=== PATIENT | female | born 1970 | race Caucasian/White ===

== ENCOUNTER → 2017-01-07 | Outpatient (CLI) | payer OTHER ==
[~2017-01-07] MED LIST: CEPH500C PO; CETI10TA84 PO; DULO60CA44 PO; MONT1TAB3 PO; OXYC1TAB3 PO; SULF800T23 PO; TRIA1SPR2 NAE
[2017-01-10 01:04] LABS: CHLAMYDIA TRACH RNA*** NOT DETECTED (NOT DETECTED); GC (NEIS GONORRHOEAE)RNA** NOT DETECTED (NOT DETECTED)
--- NOTE | 2017-02-22 10:28 | CODING QUERY NO DIAGNOSIS ---
TREATMENT RENDERED WITHOUT A DIAGNOSIS To promote full compliance with coding requirements relating to patient care, physician participation is requested in all cases of robotics specialist uncertainty. Please assist us with providing a diagnosis/symptom for the test(s) below: A diagnosis/symptom was not documented on your Order. A valid diagnosis/symptom is required to bill all insurances. Please remember that we are unable to code a diagnosis of rule out, probable, possible, questionable, or suspected. Tests that require a diagnosis: * MICROBIOLOGY- CHLAMYDIA DIAGNOSIS: * GC SCREEN DIAGNOSIS: * DOS: 01/07/17 Provider Signature: Date: Thank you Rad[facility] Information Management Once completed, please kindly fax back to [phone] For questions please call [phone]
== END | disposition home or self-care (01) ==
LOC: C.LABCVIM 10:56 → EDSTATUS 02-15 10:48
PROVIDERS: ATTEND Obstetrics & Gynecology Gynecology
DX: Z11.3 Encounter for screening for infections with a predominantly sexual mode of transmission (principal)

== ENCOUNTER 2017-04-15 17:17 | Emergency (ER) | payer OTHER ==
[~2017-04-15] VITALS: Ht 165.1 cm; Wt 60.0 kg
[~2017-04-15 17:17] MED LIST changes: -CEPH500C PO; -DULO60CA44 PO; -OXYC1TAB3 PO; -SULF800T23 PO
[2017-04-15 17:34] VITALS: TEMP 36.6; Ht 165.1 cm; Wt 60.0 kg
[2017-04-15] MEDS ORDERED: DULO60CA44 PO (17:51)
[2017-04-15] MEDS ORDERED: XYLOCAINE 1%/SOD BICARB 20 ML VIAL INFIL ONE (18:00)
[2017-04-15] MEDS ORDERED: SULF800T23 PO (19:02)
[2017-04-15] MEDS ORDERED: CEPH500C PO (19:02)
--- NOTE | 2017-04-15 19:05 | EMERGENCY ROOM VISIT NOTE ---
ED Visit Note First contact with patient: 17:47 CHIEF COMPLAINT: Infection of the right labia HISTORY OF PRESENT ILLNESS: This 47-year-old female patient presents to the emergency department 4 days after they noticed a hard, red, tender area in the right labia. The patient states proximally 3 months ago, she had a similar episode, however this did go away while she was on Flagyl. She states now, the hard lump has returned, and is significantly more painful and bothersome at this time. It is slowly getting larger, more painful and tender. No fever, chills, or loss of appetite. There has been no drainage from the area. There was no injury to the area preceding the infection. They rate the pain as intense, throbbing and 10/10. Tetanus shot is up to date. They have tried warm compresses and salt water soaks without relief of the discomfort. The patient is not diabetic. The patient has no history of subcutaneous abscesses. REVIEW OF SYSTEMS: A 10 system review of systems was performed with positives and pertinent negatives listed in the history of present illness. All other systems were reviewed and are negative. ALLERGIES: None MEDICATIONS: Cymbalta PMH: All over body pain SOCIAL HISTORY: Lives locally with family. She denies alcohol use. The patient states she does smoke one pack cigarettes per day. The patient also admits to smoking marijuana every night. PHYSICAL EXAM: Vital Signs: Reviewed Nurse's notes, vital signs stable. GENERAL : Is a 47-year-old female, no acute distress, non toxic in appearance, well- developed well-nourished. SKIN: There is an erythematous indurated area on the right side of the labia which measures about 4 cm in diameter. It is fluctuant but there is no pointing or drainage. There is a zone of inflammation around it but no lymphangitis. Capillary refill less than 2 seconds. MUSCULOSKELETAL : There is no limitation of the range of motion of the right lower extremity. EMERGENCY DEPARTMENT COURSE: I examined the patient. Verbal consent was obtained to perform the procedure. After saline and Betadine cleansing and 6 mL of 1% buffered lidocaine anesthesia, the abscess was incised with a number 11 scalpel blade. A large amount of purulent material was released with more expressed by pressure. A swab was obtained for culture. The abscess cavity was further probed with a needle special events driver and the deep pocket expressed. The abscess cavity was then copiously irrigated with sterile saline under pressure. The area was then packed with bacitracin soaked packing. The area was cleaned with sterile saline and dressed with bacitracin and a bulky bandage. The patient tolerated the procedure well. The patient was discharged home in stable condition. DIFFERENTIAL DIAGNOSIS: Bartholin's cyst, abscess, cellulitis, sepsis, and others DIAGNOSIS: Abscess of the Bartholin's cyst DISCHARGE INSTRUCTIONS & TREATMENT: You were seen in the Emergency Department for Incision and Drainage of a Bartholin's cyst abscess. You will NEED to return to the Emergency Department to have the packing removed/changed in 48 hours. This packing is NOT dissolvable and WILL need to be removed by a health care provider. Try to leave the packing in place until you return to the Emergency Department. You have been prescribed OxyIR to be used for pain control. This is a narcotic medication. You cannot drive or consume alcohol while on this medicine. This medicine should only be used for pain that cannot be controlled with over-the- counter pain medicines. This medication and Cymbalta can increase your risk of neurological symptoms associated with serotonin levels. Only use this medication EXTREMELY SPARINGLY and if needed for severe pain. You were prescribed Keflex and Bactrim to be taken as directed. Both of these medications are antibiotics. Stop these medications and contact a medical provider if you were to develop any significant adverse side effects including: wheezing, shortness of breath, passing out, vomiting, or a diffuse rash. Always take antibiotics as directed and COMPLETE the ENTIRE course regardless of the improvement of your symptoms. Proper wound care is essential for adequate wound healing and infection prevention. You can shower and clean the wound with soap and water. Do not scour over the wound. Pat dry with a towel. Do not submerse the wound (i.e. bathe or dish wash) until the sutures have been removed. You can use an antibiotic ointment with a dressing over the wound for the next 3-4 days. After this time you may leave the wound dry and open to the air. If crust develops over the wound you can use a Q-tip to apply a 1:1 peroxide:water solution to clean the wound. Look for signs of infection of the wound including: increased pain, swelling, foul discharge, streaking, or increased temperature. If any of these are noticed you should return to the Emergency Department for further assessment and treatment. As with any laceration you may have received nerve damage to the surrounding tissues. This damage may or may not be permanent. For pain control, you can use the following krge-cit-bhwjvui medicines (if >12 yo): - Regular strength (325mg/tab) Tylenol (acetaminophen) 2 tabs every 4-6 hours as needed. Do not exceed 9 tablets in a 24 hour period. Avoid taking more than 3 grams (3000 mg) of Tylenol per day. This includes any other sources of acetaminophen you may take on a regular basis. - Regular strength (200 mg/tab) Advil (ibuprofen) 1-2 tabs every 4-6 hours as needed. Do not exceed a dose of 3200 mg per day. Return to the emergency department if your symptoms worsen despite treatment course outlined above. Current/Historical Medications Scheduled Cephalexin Monohydrate (Keflex), 500 MG PO QID Duloxetine Hcl (Cymbalta), 60 MG PO DAILY Sulfa/Trimethoprim (Bactrim Ds 800MG/160MG), 1 TAB PO BID Scheduled PRN Oxycodone Ir (Roxicodone Ir), 1 TAB PO Q4-6 PRN for Pain Allergies Coded Allergies: No Known Allergies (Unverified , 04/29/16) Vital Signs Date Time Temp Pulse Resp B/P (MAP) Pulse Ox O2 Delivery O2 Flow Rate FiO2 04/15/17 19:25 73 18 128/69 98 04/15/17 17:34 36.6 95 18 144/71 97 Room Air Departure Information Impression Primary Impression: Abscess of Bartholin's gland Dispostion Home / Self-Care Condition GOOD Prescriptions Oxycodone Ir (Roxicodone Ir) 5 Mg Tab 1 TAB PO Q4-6 Y for Pain, #10 TAB For Initial Treatment Prov: Kely Ahuja PA-C 04/15/17 Sulfa/Trimethoprim (Bactrim Ds 800MG/160MG) Tab 1 TAB PO BID for 7 Days, #14 TAB Prov: Kely Ahuja PA-C 04/15/17 Cephalexin Monohydrate (Keflex) 500 Mg Cap 500 MG PO QID for 7 Days, #28 CAP Prov: Kely Ahuja PA-C 04/15/17 Referrals Janna,Yosvany F.JR,M.D.(JOYCE) (PCP) Patient Instructions ED Bartholins Cyst Alyce Singh [facility] Additional Instructions You were seen in the Emergency Department for Incision and Drainage of a Bartholin's cyst abscess. You will NEED to return to the Emergency Department to have the packing removed/changed in 48 hours. This packing is NOT dissolvable and WILL need to be removed by a health care provider. Try to leave the packing in place until you return to the Emergency Department. You have been prescribed OxyIR to be used for pain control. This is a narcotic medication. You cannot drive or consume alcohol while on this medicine. This medicine should only be used for pain that cannot be controlled with over-the- counter pain medicines. This medication and Cymbalta can increase your risk of neurological symptoms associated with serotonin levels. Only use this medication EXTREMELY SPARINGLY and if needed for severe pain. You were prescribed Keflex and Bactrim to be taken as directed. Both of these medications are antibiotics. Stop these medications and contact a medical provider if you were to develop any significant adverse side effects including: wheezing, shortness of breath, passing out, vomiting, or a diffuse rash. Always take antibiotics as directed and COMPLETE the ENTIRE course regardless of the improvement of your symptoms. Proper wound care is essential for adequate wound healing and infection prevention. You can shower and clean the wound with soap and water. Do not scour over the wound. Pat dry with a towel. Do not submerse the wound (i.e. bathe or dish wash) until the sutures have been removed. You can use an antibiotic ointment with a dressing over the wound for the next 3-4 days. After this time you may leave the wound dry and open to the air. If crust develops over the wound you can use a Q-tip to apply a 1:1 peroxide:water solution to clean the wound. Look for signs of infection of the wound including: increased pain, swelling, foul discharge, streaking, or increased temperature. If any of these are noticed you should return to the Emergency Department for further assessment and treatment. As with any laceration you may have received nerve damage to the surrounding tissues. This damage may or may not be permanent. For pain control, you can use the following ilsq-uqd-tiqvisk medicines (if >12 yo): - Regular strength (325mg/tab) Tylenol (acetaminophen) 2 tabs every 4-6 hours as needed. Do not exceed 9 tablets in a 24 hour period. Avoid taking more than 3 grams (3000 mg) of Tylenol per day. This includes any other sources of acetaminophen you may take on a regular basis. - Regular strength (200 mg/tab) Advil (ibuprofen) 1-2 tabs every 4-6 hours as needed. Do not exceed a dose of 3200 mg per day. Return to the emergency department if your symptoms worsen despite treatment course outlined above.
[2017-04-15] MEDS ORDERED: OXYC1TAB3 PO (19:11)
[2017-04-15 19:25] VITALS: BP 128/69; PULSE 73; O2SAT 98
--- NOTE | 2017-04-18 17:31 | Pharmacy Progress Note ---
ED Pharmacist Culture FollowUp Date of Service: Apr 18, 2017. Patient was sent home with a prescriptions for cephalexin and Bactrim. Cephalexin should cover the Group B beta Strep growing from the patient's Bartholin abscess and may cover the Prevotella isolated. Called patient - boyfriend answered. Left message requesting patient call back. Provided ED phone number, but no medical information to protect patient privacy.
== END 2017-04-15 19:26 | disposition home or self-care (01) ==
LOC: C.EDB 17:19 → C.EDD 19:26
DX: N75.1 Abscess of Bartholin's gland (principal); F17.210 Nicotine dependence, cigarettes, uncomplicated; F12.10 Cannabis abuse, uncomplicated

== ENCOUNTER 2017-04-17 11:32 | Emergency (ER) | payer OTHER ==
[~2017-04-17] VITALS: Ht 165.1 cm; Wt 58.5 kg
[~2017-04-17 11:32] MED LIST changes: +CEPH500C PO; -CETI10TA84 PO; +DULO60CA44 PO; -MONT1TAB3 PO; +OXYC1TAB3 PO; +SULF800T23 PO; -TRIA1SPR2 NAE
[2017-04-17 11:35] VITALS: BP 116/71; PULSE 73; TEMP 36.9; O2SAT 99; Ht 165.1 cm; Wt 58.5 kg
--- NOTE | 2017-04-17 12:16 | EMERGENCY ROOM VISIT NOTE ---
History First contact with patient: 11:37 Chief Complaint: PACKING REMOVAL Stated Complaint: PACKING REMOVAL Nursing Triage Summary: triage note: pt presents for packing removal "for a batholian gland." History of Present Illness The patient is a 47 year old female who presents to the Emergency Room for packing removal from a Bartholin's cyst that was evaluated in our emergency department 2 days ago. The patient reports that the swelling and pain has significantly reduced. She has been taking Keflex and Bactrim DS as previously prescribed. She denies any fevers or chills. Review of Systems 10 system review was performed and was negative except for pertinent positives and negatives as indicated in history of present illness Past Medical/Surgical History Well documented on previous visit Family History No pertinent family history Social History Smoking Status: Current Every Day Smoker Alcohol Use: occasionally Drug Use: marijuana Marital Status: in relationship Housing Status: lives with significant other Occupation Status: employed Current/Historical Medications Scheduled Cephalexin Monohydrate (Keflex), 500 MG PO QID Duloxetine Hcl (Cymbalta), 60 MG PO DAILY Sulfa/Trimethoprim (Bactrim Ds 800MG/160MG), 1 TAB PO BID Scheduled PRN Oxycodone Ir (Roxicodone Ir), 1 TAB PO Q4-6 PRN for Pain Allergies Coded Allergies: No Known Allergies (Unverified , 04/29/16) Physical Exam Vital Signs Date Time Temp Pulse Resp B/P (MAP) Pulse Ox O2 Delivery O2 Flow Rate FiO2 04/17/17 11:35 36.9 73 18 116/71 99 Room Air Physical Exam GENITOURINARY: With a female nurse pan washer present, examination shows mild persistent purulent drainage with packing removal. There is no significant surrounding induration, erythema or fluctuance. Medical Decision & Procedures ED Course Patient history and physical exam were performed. Nurse's notes were reviewed. Vital signs were reviewed and normal. At this point, the patient was encouraged to continue expressing the abscess. She does not have a bathtub in her apartment. She was instructed to complete her antibiotics as previously prescribed, and seek further reevaluation for any worsening infection. Ibuprofen or Tylenol as needed for pain. The patient was happy with plan of care, and voiced understanding of all discharge instructions. Medical Decision Impression Primary Impression: Bartholin's gland abscess Departure Information Dispostion Home / Self-Care Condition FAIR Forms HOME CARE DOCUMENTATION FORM, IMPORTANT VISIT INFORMATION Patient Instructions My [facility] Additional Instructions Continue to express pus from the abscess. Return to the emergency department for any progressively worsening pain, swelling, redness or fever. Make sure that you complete all antibiotics as prescribed.
== END 2017-04-17 11:55 | disposition home or self-care (01) ==
LOC: C.EDB 11:33 → C.EDD 11:55
DX: Z01.89 Encounter for other specified special examinations (principal); N75.1 Abscess of Bartholin's gland

== ENCOUNTER 2018-01-30 09:04 | Emergency (ER) | payer OTHER ==
[~2018-01-30] VITALS: Ht 165.1 cm; Wt 56.3 kg
[~2018-01-30 09:04] MED LIST changes: -CEPH500C PO; -OXYC1TAB3 PO; -SULF800T23 PO
[2018-01-30 09:12] VITALS: TEMP 36.7; Ht 165.1 cm; Wt 56.3 kg
--- NOTE | 2018-01-30 10:04 | DIAGNOSTIC IMAGING REPORT ---
R ANKLE MIN 3 VIEWS ROUTINE CLINICAL HISTORY: 47 years-old Female presenting with R knee/ankle pain, hurt at work. TECHNIQUE: Frontal, mortise, and lateral views of the right ankle were obtained. COMPARISON: None. FINDINGS: Ankle mortise intact. No acute fracture or malalignment. No advanced degenerative change. Mild diffuse soft tissue swelling suggested greatest over the medial ankle. IMPRESSION: No acute osseous injury. Electronically signed by: Amor Modi M.D. 01/30/2018 10:03 AM Dictated Date/Time: 01/30/2018 10:02 AM
--- NOTE | 2018-01-30 10:06 | DIAGNOSTIC IMAGING REPORT ---
R KNEE 3 VIEWS HISTORY: 47 years-old Female R knee/ankle pain acute right knee pain status post trauma COMPARISON: None available TECHNIQUE: 3 views of the right knee FINDINGS: No acute fracture, dislocation, or significant joint space narrowing. There is mild soft tissue swelling about the knee, greatest medially with small joint effusion. IMPRESSION: 1. No acute fracture or dislocation. 2. Mild soft tissue swelling with small joint effusion. The above report was generated using voice recognition software. It may contain grammatical, syntax or spelling errors. Electronically signed by: Gerald Delgado M.D. 01/30/2018 10:05 AM Dictated Date/Time: 01/30/2018 10:03 AM
[2018-01-30] MEDS ORDERED: FLUT0.15 NAE (10:29)
[2018-01-30 11:17] VITALS: BP 106/64; PULSE 75; O2SAT 97
--- NOTE | 2018-01-30 15:25 | EMERGENCY ROOM VISIT NOTE ---
History First contact with patient: 09:16 Chief Complaint: KNEEPAIN Stated Complaint: KNEE PAIN History of Present Illness The patient is a 47 year old female who presents to the Emergency Room with complaints of right knee and ankle pain. The patient reports that she was looking up a trailer hoang 2 days ago when the trailer shifted and hit the outer aspect of the knee. The patient now reports persistent right medial knee and right lateral ankle pain. She denies any pain extending into the mid leg, thigh or back. She denies any paresthesias or numbness of the right lower extremity, and rates her discomfort a 3 out of 10. Review of Systems 10 system review was performed and was negative except for pertinent positives and negatives as indicated in history of present illness Past Medical/Surgical History Medical Problems: (1) Abscess Of Bartholin's Gland (2) Cannabis Abuse, Uncomplicated (3) Chronic back pain (4) Nicotine Dependence, Unspecified, Uncomplicated Surgical Problems: (1) History of appendectomy (2) History of tubal ligation Family History FH: diabetes mellitus FH: heart disease FH: hypertension No pertinent family history Social History Smoking Status: Current Every Day Smoker Alcohol Use: occasionally Drug Use: marijuana Marital Status: in relationship Housing Status: lives with significant other Occupation Status: employed Current/Historical Medications Scheduled Duloxetine Hcl (Cymbalta), 60 MG PO DAILY Fluticasone Propionate (Nasal) (Flonase Allergy Relief), 1 SPRAY FLAKO DAILY Physical Exam Vital Signs Date Time Temp Pulse Resp B/P (MAP) Pulse Ox O2 Delivery O2 Flow Rate FiO2 01/30/18 11:17 75 16 106/64 97 01/30/18 09:12 36.7 86 20 128/89 98 Room Air Physical Exam CONSTITUTIONAL: Healthy and well nourished. Alert and oriented X 3 with positive affect. Patient does not appear in any acute distress. HEENT: Normocephalic, atraumatic. Pupils equal, round and reactive. NECK: Full active range of motion without discomfort. MUSCULOSKELETAL: Examination of the right lower extremity does not show any obvious lacerations, abrasions or ecchymosis. The patient has tenderness to palpation laterally and medially. Valgus stress on the knee causes significant medial discomfort. No gross ligamentous laxity noted. Patient has no tenderness to palpation over the proximal fibula, peripatellar region or anterior tibia. The patient has lateral tenderness to palpation of the ankle. Negative anterior draw. No focal tenderness through the midfoot, metatarsals, phalanges, calcaneus or Achilles tendon. Pedal pulses are intact. INTEGUMENTARY: No rash or other significant dermatologic conditions noted. NEUROLOGIC: Right lower extremity is sensory intact. Medical Decision & Procedures ER Provider Diagnostic Interpretation: My interpretation of right ankle x-rays does not show any obvious fractures, dislocation or ankle mortise asymmetry. Radiologist report is as follows: R ANKLE MIN 3 VIEWS ROUTINE CLINICAL HISTORY: 47 years-old Female presenting with R knee/ankle pain, hurt at work. TECHNIQUE: Frontal, mortise, and lateral views of the right ankle were obtained. COMPARISON: None. FINDINGS: Ankle mortise intact. No acute fracture or malalignment. No advanced degenerative change. Mild diffuse soft tissue swelling suggested greatest over the medial ankle. IMPRESSION: No acute osseous injury. My interpretation of right knee x-rays does not show any obvious fractures, dislocation or osteolytic lesions. A small joint effusion is appreciated. Radiologist report is as follows: R KNEE 3 VIEWS HISTORY: 47 years-old Female R knee/ankle pain acute right knee pain status post trauma COMPARISON: None available TECHNIQUE: 3 views of the right knee FINDINGS: No acute fracture, dislocation, or significant joint space narrowing. There is mild soft tissue swelling about the knee, greatest medially with small joint effusion. IMPRESSION: 1. No acute fracture or dislocation. 2. Mild soft tissue swelling with small joint effusion. ED Course Patient history and physical exam were performed. Nurse's notes were reviewed. Vital signs were reviewed and were normal. The patient refused any analgesics on initial exam. X-rays of the right knee and ankle are normal. Clinical exam is concerning for a right knee MCL sprain. And knee immobilizer and crutches were dispensed. The patient was encouraged to intermittently apply ice to the knee and ankle. Ibuprofen and Tylenol in alternating fashion as needed for additional pain relief. The patient was instructed to contact her PCP for orthopedic referral and management. The patient voiced understanding of all discharge instructions, was happy with plan of care, and rated her discomfort a 3 out of 10 at the time of discharge. Medical Decision [place] Drug Monitoring Program Search Results: patient reviewed within database, no issues identified Medication Reconcilliation Current Medication List: was personally reviewed by me Blood Pressure Screening Patient's blood pressure: Normal blood pressure Impression Primary Impression: Sprain of medial collateral ligament of right knee, initial encounter Additional Impression: Right ankle sprain Departure Information Referrals Yosvany Saldivar M.D.(JOYCE) (PCP) Patient Instructions My [facility] Problem Qualifiers
== END 2018-01-30 10:55 | disposition home or self-care (01) ==
LOC: C.EDB 09:07 → C.EDA 10:55
DX: S83.411A Sprain of medial collateral ligament of right knee, initial encounter (principal); S93.401A Sprain of unspecified ligament of right ankle, initial encounter; W22.8XXA Striking against or struck by other objects, initial encounter; F17.210 Nicotine dependence, cigarettes, uncomplicated; F12.10 Cannabis abuse, uncomplicated; Z79.899 Other long term (current) drug therapy